=== PATIENT | female | born 1940 | race Hispanic/Latino ===

== ENCOUNTER 2017-01-21 12:38 | Emergency (ER) | payer MEDICARE ==
[2017-01-21 13:00] LABS: BASOPHILS % (AUTO) 0.3 % (0.0-5.0); EOSINOPHILS % (AUTO) 0.6 % (0.0-8.0); HEMATOCRIT 39.8 % (36-48); LYMPHOCYTES % (AUTO) 27.1 % (21.0-51.0); MEAN CORPUSCULAR HEMOGLOBIN 40.5 pg (27.0-33.0); MEAN CORPUSCULAR VOLUME 115.6 fL (79-99); MONOCYTES % (AUTO) 5.5 % (3.0-13.0); NEUTROPHILS % (AUTO) 66.5 % (40.0-77.0); PLATELET COUNT (AUTO) 219 K/uL (130-400); RED BLOOD CELL COUNT(AUTO) 3.45 MIL/uL (4.00-5.50); RED CELL DISTRIBUTION WIDTH 14.7 % (11.0-15.5); WHITE BLOOD COUNT (AUTO) 12.3 K/uL (4.8-10.8)
[2017-01-21 13:13] LABS: INR 0.93 (0.85-1.15); PARTIAL THROMBOPLASTIN TIME 24.9 SEC (26.3-35.5); PROTHROMBIN TIME 9.8 SEC (9.6-11.6)
[2017-01-21 13:26] LABS: AMPHET/METH SCREEN,URINE NEGATIVE (NEGATIVE); BARBITURATE SCREEN, URINE NEGATIVE (NEGATIVE); BENZODIAZEPINES SCREEN,URINE NEGATIVE (NEGATIVE); CANNABINOID SCREEN,URINE NEGATIVE (NEGATIVE); COCAINE SCREEN,URINE NEGATIVE (NEGATIVE); OPIATE SCREEN,URINE NEGATIVE (NEGATIVE); PHENCYCLIDINE SCREEN,URINE NEGATIVE (NEGATIVE)
[2017-01-21 13:32] LABS: APPEARANCE,URINE Cloudy (CLEAR); BILIRUBIN,URINE Negative (NEGATIVE); COLOR,URINE Dark Yellow (YELLOW); GLUCOSE, URINE (UA) >=1000 mg/dL (NEGATIVE); KETONES,URINE 15 mg/dL (NEGATIVE); LEUKOCYTE ESTERASE ,URINE Moderate (NEGATIVE); NITRATE,URINE Negative (NEGATIVE); OCCULT BLOOD,URINE Negative (NEGATIVE); PROTEIN,URINE Trace (NEGATIVE)
[2017-01-21 14:01] LABS: ALANINE AMINOTRANSFERASE 18 U/L (12-78); ALBUMIN 3.8 g/dL (3.5-5.0); ASPARTATE AMINOTRANSFERASE 15 U/L (10-37); BILIRUBIN,TOTAL 0.9 mg/dL (0.2-1.0); CARBON DIOXIDE 29 mmol/L (21-32); CHLORIDE 98 mmol/L (101-111); CREATINE KINASE MB < 0.5 ng/mL (0.5-3.6); CREATINE KINASE, TOTAL 37 U/L (21-232); CREATININE 1.1 mg/dL (0.5-1.5); GLOMERULAR FILTR. RATE CALC 51 mL/min (>60); GLUCOSE,RANDOM 329 mg/dL (70-105); MYOGLOBIN 39 ng/mL (10-92); POTASSIUM 5.1 mmol/L (3.5-5.1); SODIUM SERUM 136 mmol/L (136-145); TOTAL PROTEIN, SERUM 8.6 g/dL (6.0-8.3); UREA NITROGEN, BLOOD 27 mg/dL (7-18)
[2017-01-21 14:17] LABS: BACTERIA,URINE Many /HPF (None Seen); RBC,URINE 0-1 /HPF (0-1)
[2017-01-21] MEDS ORDERED: ASPIRIN 325 MG TABLET ONE (14:45)
[2017-01-21] MEDS ORDERED: SODIUM CHLORIDE 0.9% 1000ML 1,000 ML IV ONE (16:20)
[2017-01-21] MEDS ORDERED: INSULIN HUMULIN R 100 UNIT/ML 3ML ONE (16:21)
== END 2017-01-21 18:31 | disposition home or self-care (01) ==
LOC: EDH 12:38
DX: I63.9 Cerebral infarction, unspecified (principal); E11.9 Type 2 diabetes mellitus without complications; I10 Essential (primary) hypertension; E07.9 Disorder of thyroid, unspecified; Z88.0 Allergy status to penicillin
CPT/HCPCS: 36415; 70450; 71010; 80053; 80305; 81001; 82550; 82553; 82948 ×2; 83874; 84484; 85025; 85610; 85730; 93005; 96361; 96374; 99285; J1815; J7030

== ENCOUNTER 2018-09-30 19:59 | Inpatient (IN) | payer MEDICARE | END 2018-10-03 20:41 | disposition home or self-care (01) | LOC: EDH 19:59 → EDHIP 10-01 00:11 → 3CH 10-01 01:51 | DX: N17.9 Acute kidney failure, unspecified (principal); N39.0 Urinary tract infection, site not specified; I50.32 Chronic diastolic (congestive) heart failure; I95.1 Orthostatic hypotension; E86.0 Dehydration ==

== ENCOUNTER 2018-12-13 02:52 | Inpatient (IN) | payer MEDICARE ==
[~2018-12-13] VITALS: Ht 165.1 cm; Wt 63.1 kg
[~2018-12-13 02:52] MED LIST: ASPI-555 PO; ATOR40TA69 PO; CLOP75TA32 PO; ERGO500014 PO; INSU100V37 SQ; LEVO50TA11 PO; LISI-617 PO; METF-526 PO; VITA-328 PO
[2018-12-13 03:24] LABS: BASOPHILS % (AUTO) 0.6 % (0.0-5.0); EOSINOPHILS % (AUTO) 2.2 % (0.0-8.0); HEMATOCRIT 40.7 % (36-48); LYMPHOCYTES % (AUTO) 38.8 % (21.0-51.0); MEAN CORPUSCULAR HEMOGLOBIN 32.2 pg (27.0-33.0); MEAN CORPUSCULAR HGB CONC 34.4 g/dL (32.0-36.0); MEAN CORPUSCULAR VOLUME 93.5 fL (79-99); MONOCYTES % (AUTO) 6.1 % (3.0-13.0); NEUTROPHILS % (AUTO) 52.3 % (40.0-77.0); PLATELET COUNT (AUTO) 221 K/uL (130-400); RED BLOOD CELL COUNT(AUTO) 4.36 MIL/uL (4.00-5.50); RED CELL DISTRIBUTION WIDTH 13.1 % (11.0-15.5); WHITE BLOOD COUNT (AUTO) 9.8 K/uL (4.8-10.8)
[2018-12-13] MEDS ORDERED: KETAMINE 50MG/ML SYRINGE 50 MG/ML DISP.SYRIN IV ONE (03:27)
[2018-12-13 03:28] LABS: CREATININE 1.1 mg/dL (0.5-1.5); POTASSIUM 4.1 mmol/L (3.5-5.1)
[2018-12-13 03:32] LABS: ALBUMIN 3.5 g/dL (3.5-5.0); BILIRUBIN,TOTAL 0.4 mg/dL (0.2-1.0); TOTAL PROTEIN, SERUM 7.6 g/dL (6.0-8.3)
[2018-12-13] MEDS ORDERED: MORPHINE SULFATE 2 MG/ML 1ML SYG ONE (04:21)
[2018-12-13 04:49] LABS: APPEARANCE,URINE Clear (CLEAR); BILIRUBIN,URINE Negative (NEGATIVE); COLOR,URINE Yellow (YELLOW); GLUCOSE, URINE (UA) Negative (NEGATIVE); KETONES,URINE Negative (NEGATIVE); LEUKOCYTE ESTERASE ,URINE Negative (NEGATIVE); NITRATE,URINE Negative (NEGATIVE); OCCULT BLOOD,URINE Negative (NEGATIVE); PH,URINE 5.5 (5.0-8.0); PROTEIN,URINE Negative (NEGATIVE)
[2018-12-13] MEDS: SODIUM CHLORIDE 0.9% 1000ML 1,000 ML IV SCH ×2 (06:15→19:35)
[2018-12-13] MEDS ORDERED: HYDRALAZINE HCL 20 MG/ML VIAL IV PRN (06:15)
[2018-12-13] MEDS ORDERED: SODIUM CHLORIDE 0.9% 1000ML 1,000 ML IV ONE (06:51)
[2018-12-13] MEDS ORDERED: MORPHINE SULFATE 2 MG/ML 1ML SYG IVP PRN (07:45)
[2018-12-13 08:19] VITALS: BP 110/59
[2018-12-13] MEDS ORDERED: B CO1CAP5 PO (08:25)
[2018-12-13] MEDS ORDERED: [UNRECOGNIZED DRUG - CODE] PO (08:26)
[2018-12-13] MEDS: METFORMIN HCL 500 MG TAB.SR.24H PO SCH (09:00)
[2018-12-13] MEDS: MORPHINE SULFATE 2 MG/ML 1ML SYG IVP PRN ×3 (09:36→23:52)
[2018-12-13] MEDS: FAMOTIDINE/PF 20 MG/2 ML VIAL IV SCH ×2 (09:36→19:35)
[2018-12-13 11:14] VITALS: BP_SYST 112; BP_SYST 132; BP_DIAS 53; BP_DIAS 70
[2018-12-13] MEDS: KETOROLAC TROMETHAMINE 30MG/ML IM PRN (12:16)
[2018-12-13] MEDS: LISINOPRIL 5 MG TABLET PO SCH (13:39)
[2018-12-13] MEDS: ASPIRIN 81 MG EC TAB PO SCH (13:39)
[2018-12-13] MEDS: HEPARIN SODIUM 5000UNIT/ML 1ML VIAL SQ SCH ×2 (13:41→19:28)
[2018-12-13 16:00] VITALS: BP 110/51
[2018-12-13] MEDS: INSULIN HUMULIN R 100 UNIT/ML 3ML SQ SCH ×2 (16:27→21:54)
--- NOTE | 2018-12-13 16:48 | NUR ---
cm note met with patient pt completely blind. met with granddaughter and sister, per pt resides at home with daughter Bella. pt has no dme. ambulates as long as someone is with her. pt/family open to snf or rehab. will discuss with daughter bella as well of which one they prefer. Addendum: 12/13/18 at 1651 by GISELLA BORREGO CM Amended: Links added.
[2018-12-13 19:14] VITALS: BP 107/49
[2018-12-13] MEDS: ATORVASTATIN CALCIUM 40 MG TABLET PO SCH (19:35)
[2018-12-13 23:06] VITALS: BP 100/51
[2018-12-14 03:06] VITALS: BP 95/43
[2018-12-14 05:54] LABS: BASOPHILS % (AUTO) 0.3 % (0.0-5.0); EOSINOPHILS % (AUTO) 1.2 % (0.0-8.0); HEMATOCRIT 28.6 % (36-48); MEAN CORPUSCULAR HEMOGLOBIN 33.1 pg (27.0-33.0); MEAN CORPUSCULAR HGB CONC 35.1 g/dL (32.0-36.0); MEAN CORPUSCULAR VOLUME 94.2 fL (79-99); MONOCYTES % (AUTO) 8.6 % (3.0-13.0); NEUTROPHILS % (AUTO) 61.9 % (40.0-77.0); PLATELET COUNT (AUTO) 189 K/uL (130-400); RED BLOOD CELL COUNT(AUTO) 3.03 MIL/uL (4.00-5.50); RED CELL DISTRIBUTION WIDTH 12.9 % (11.0-15.5); WHITE BLOOD COUNT (AUTO) 10.2 K/uL (4.8-10.8)
[2018-12-14 06:09] LABS: CREATININE 1.1 mg/dL (0.5-1.5); POTASSIUM 3.8 mmol/L (3.5-5.1); TOTAL PROTEIN, SERUM 6.1 g/dL (6.0-8.3)
[2018-12-14 06:25] LABS: ALBUMIN 2.8 g/dL (3.5-5.0); BILIRUBIN,TOTAL 0.5 mg/dL (0.2-1.0)
[2018-12-14] MEDS: INSULIN HUMULIN R 100 UNIT/ML 3ML SQ SCH ×4 (06:35→21:00)
[2018-12-14] MEDS: HEPARIN SODIUM 5000UNIT/ML 1ML VIAL SQ SCH ×2 (07:45→20:37)
[2018-12-14 07:50] VITALS: BP 118/48
[2018-12-14] MEDS: MORPHINE SULFATE 2 MG/ML 1ML SYG IVP PRN ×2 (08:03→21:49)
[2018-12-14] MEDS: METFORMIN HCL 500 MG TAB.SR.24H PO SCH (08:04)
[2018-12-14] MEDS: LEVOTHYROXINE 50 MCG TABLET PO SCH (08:04)
[2018-12-14] MEDS: FAMOTIDINE/PF 20 MG/2 ML VIAL IV SCH ×2 (08:04→20:37)
[2018-12-14] MEDS: ASPIRIN 81 MG EC TAB PO SCH (09:00)
[2018-12-14] MEDS: LISINOPRIL 5 MG TABLET PO SCH (09:00)
--- NOTE | 2018-12-14 10:30 | NUR ---
PLAN POST SRUGERY? SPOKE TO FAMILY/SISTER AT BEDSIDE. /DAUGHTER ON PHONE ALL AGREED ON VBIP VERBAL CONSENT OBTAINED FROM PATIENT- WILL FOLLOW UP POST DISCHARGE
--- NOTE | 2018-12-14 10:31 | NUR ---
PLAN POST SURGERY CAROL ANN Paul DTR ON PHONE/SISTER AT B/SIDE. ALL AGREED TO VBIP RU. VERBAL CONSENT FROM PATIENT. WILL FOLLOW UP POST SURGERY
[2018-12-14 11:50] VITALS: BP 110/65
[2018-12-14] MEDS ORDERED: LORAZEPAM 2 MG/ML 1 ML VIAL ONE (13:23)
--- NOTE | 2018-12-14 13:23 | NUR ---
AGITATED AAOX1, PATIENT IS RESTLESS, PULLED OUT IV AND REMOVED TELEPAK. PATIENT REDIRECTED TO NOT PULL ON LINES, PATIENT CONFUSED AND UNABLE TO FOLLOW DIRECTIONS. ADMINISTRATOR SOCIAL WELFARE PAGED, NEW ORDER FOR ATIVAN 0.25MG IV PRN. WILL GIVE ATIVAN PRN. BED LOW AND LOCKED. FAMILY IN ROOM.
[2018-12-14] MEDS: SODIUM CHLORIDE 0.9% 1000ML 1,000 ML IV SCH ×2 (17:02→21:48)
[2018-12-14 17:11] VITALS: BP 130/63
[2018-12-14 20:11] VITALS: BP 142/63
[2018-12-14] MEDS: ATORVASTATIN CALCIUM 40 MG TABLET PO SCH (20:38)
[2018-12-14] MEDS: LORAZEPAM 2 MG/ML 1 ML VIAL IVP PRN (20:46)
[2018-12-15] VITALS (22 sets, daily range): BP systolic 82–150; BP diastolic 37–73
[2018-12-15] MEDS: LORAZEPAM 2 MG/ML 1 ML VIAL IVP PRN (01:57)
[2018-12-15 05:15] LABS: HEMATOCRIT 28.1 % (36-48); MEAN CORPUSCULAR VOLUME 94.3 fL (79-99); PLATELET COUNT (AUTO) 189 K/uL (130-400); RED BLOOD CELL COUNT(AUTO) 2.98 MIL/uL (4.00-5.50); RED CELL DISTRIBUTION WIDTH 12.4 % (11.0-15.5); WHITE BLOOD COUNT (AUTO) 9.9 K/uL (4.8-10.8)
[2018-12-15 05:22] LABS: CREATININE 0.8 mg/dL (0.5-1.5)
[2018-12-15] MEDS: INSULIN HUMULIN R 100 UNIT/ML 3ML SQ SCH ×4 (05:28→21:00)
[2018-12-15 05:48] LABS: POTASSIUM 4.1 mmol/L (3.5-5.1)
[2018-12-15] MEDS: METFORMIN HCL 500 MG TAB.SR.24H PO SCH (07:29)
[2018-12-15] MEDS: HEPARIN SODIUM 5000UNIT/ML 1ML VIAL SQ SCH ×2 (07:29→20:11)
[2018-12-15] MEDS: LEVOTHYROXINE 50 MCG TABLET PO SCH (07:29)
[2018-12-15] MEDS: ASPIRIN 81 MG EC TAB PO SCH (07:29)
[2018-12-15] MEDS: LISINOPRIL 5 MG TABLET PO SCH (07:29)
[2018-12-15] MEDS: FAMOTIDINE/PF 20 MG/2 ML VIAL IV SCH ×2 (07:43→20:04)
[2018-12-15 07:47] LABS: BAND NEUTROPHILS % (MANUAL) 2 % (0-2); LYMPHOCYTES % (MANUAL) 11 % (22-44); MONOCYTES % (MANUAL) 4 % (2-9); REACTIVE LYMPHOCYTES 2 % (0-0); SEGMENTED NEUTROPHILS % 81 % (40-70)
[2018-12-15 07:48] LABS: MAN.DIFF COMMENT-IMPRESSION MANUAL DIFFERENTIAL; PLATELET MORPHOLOGY COMMENT ADEQUATE
[2018-12-15] MEDS: SODIUM CHLORIDE 0.9% 1000ML 1,000 ML IV SCH ×2 (11:35→20:02)
[2018-12-15] MEDS ORDERED: SUCCINYLCHOLINE 200MG/10ML SYR ONE (16:02)
[2018-12-15] MEDS ORDERED: PROPOFOL 10 MG/ML 20ML VIAL IV ONE (16:02)
[2018-12-15] MEDS ORDERED: ROCURONIUM 10MG/1ML SYR 10 MG/ML ML ONE (16:02)
[2018-12-15] MEDS ORDERED: FENTANYL CITRATE PF 50 MCG/1 ML 2ML VIAL ONE (16:02)
[2018-12-15] MEDS ORDERED: LIDOCAINE PF 2% 5ML ABBOJECT ONE (16:02)
[2018-12-15] MEDS ORDERED: ROPIVACAINE 0.5% 5MG/ML 30ML IJ ONE (16:06)
[2018-12-15] MEDS ORDERED: SUCCINYLCHOLINE CHLORIDE 20 MG/ML 10 ML VIAL ONE (16:10)
[2018-12-15] MEDS ORDERED: CLINDAMYCIN 600 MG/D5% WATER 50 ML IV ONE (16:15)
[2018-12-15] MEDS ORDERED: EPHEDRINE SULFATE 50 MG/ML AMPULE ONE (16:40)
[2018-12-15] MEDS ORDERED: KETOROLAC TROMETHAMINE 30MG/ML ONE (17:45)
[2018-12-15] MEDS ORDERED: GLYCOPYRROLATE 1 MG/5 ML SYRINGE ONE (17:46)
[2018-12-15] MEDS ORDERED: NEOSTIGMINE 5MG/5ML SYR IV ONE (17:46)
[2018-12-15] MEDS ORDERED: HYDROCODONE/ACETAMINOPHEN 5/325 MG TAB PO PRN (18:00)
[2018-12-15] MEDS ORDERED: POTASSIUM CHLORIDE 20MEQ/100ML 100 ML IV PRN (18:00)
[2018-12-15] MEDS ORDERED: DIPHENHYDRAMINE HCL 25 MG CAPSULE PO PRN (18:00)
[2018-12-15] MEDS ORDERED: FERROUS FUMARATE 324 MG TABLET PO PRN (18:00)
[2018-12-15] MEDS ORDERED: DiphenhydrAMINE HCL 50 MG/ML VIAL IVP PRN (18:00)
[2018-12-15] MEDS: ATORVASTATIN CALCIUM 40 MG TABLET PO SCH (20:04)
[2018-12-15] MEDS: CLINDAMYCIN 900 MG/D5% WATER 50 ML IV SCH (22:27)
[2018-12-16 00:09] VITALS: BP 120/58
[2018-12-16] MEDS: SODIUM CHLORIDE 0.9% 1000ML 1,000 ML IV SCH ×4 (00:55→14:15)
[2018-12-16] MEDS: LORAZEPAM 2 MG/ML 1 ML VIAL IVP PRN (02:28)
[2018-12-16] MEDS ORDERED: LABETALOL 20 MG/4 ML DISP.SYRIN IV PRN (04:00)
--- NOTE | 2018-12-16 04:02 | NUR ---
ELEVATED HEART RATE PATIENT WITH HEART RATE AT 150 BPM PATIENT AWAKE BUT CONFUSED WHICH IS HER NORMAL STATE. FAMILY AT SIDE BLOOD PRESSURE 118/54. JOSHUA ADAMS INFORMED OF PATIENT STATUS. ORDERS FOR LABATOLOL 10 MG IV AND ECG WERE GIVEN AND CARRIED OUT.
[2018-12-16 04:09] VITALS: BP 164/79
[2018-12-16] MEDS: MORPHINE SULFATE 2 MG/ML 1ML SYG IVP PRN (04:44)
[2018-12-16] MEDS: CLINDAMYCIN 900 MG/D5% WATER 50 ML IV SCH (05:45)
[2018-12-16] MEDS: INSULIN HUMULIN R 100 UNIT/ML 3ML SQ SCH ×4 (05:52→21:00)
[2018-12-16 08:06] VITALS: BP 161/76
[2018-12-16] MEDS ORDERED: PHARMACY COMMUNICATION MISC SCH (09:30)
--- NOTE | 2018-12-16 10:45 | NUR ---
Sarah LUKE NP SPOKE TO Sarah LUKE NP FOR HOSPITALIST REGARDING REPORTED SVT EPISODE AROUND 0350 THIS MORNING. Sarah LUKE NP DID TELL ME THAT LONG PATIENTS HEART RHYTHM WAS ABLE TO CONVERT BACK TO SINUS RHYTHM THERE WAS NO INDICATIONS FOR FURTHER SCHEDULED MEDICATIONS. CONTINUE TO MONITOR FOR NOW.
[2018-12-16] MEDS: LEVOTHYROXINE 50 MCG TABLET PO SCH (11:25)
[2018-12-16] MEDS: METFORMIN HCL 500 MG TAB.SR.24H PO SCH (11:26)
[2018-12-16 11:28] VITALS: BP 110/73
[2018-12-16] MEDS: ASPIRIN 81 MG EC TAB PO SCH (11:29)
[2018-12-16] MEDS: CLOPIDOGREL BISULFATE 75 MG TAB PO SCH (11:29)
[2018-12-16] MEDS: POLYETHYLENE GLYCOL 3350 17 GM POWD.PACK PO SCH (11:30)
[2018-12-16] MEDS: LISINOPRIL 5 MG TABLET PO SCH (11:30)
[2018-12-16] MEDS: FAMOTIDINE/PF 20 MG/2 ML VIAL IV SCH ×2 (11:31→20:22)
[2018-12-16] MEDS: PSYLLIUM SEED 1 EACH PACKET PO SCH (12:00)
--- NOTE | 2018-12-16 12:15 | NUR ---
CHRISTINA LEYVA FOR CARDIOLOGY CHRISTINA LEYVA FOR CARDIOLOGY ROUNDING ON FLOOR AT THIS TIME. I TOLD CHRISTINA LEYVA THAT HOSPITALIST HAD CONSULTED WITH DR. BIMAL MCGRATH REGARDING CARDIAC CLEARANCE PRIOR TO SURGERY, AND I ASKED CHRISTINA LEYVA IF CARDIOLOGY STILL ROUNDS ON PATIENTS AFTER SURGERY. CHRISTINA LEYVA REPLIED THAT DR. BIMAL MCGRATH HAS SIGNED OFF OF CASE SO THEY ARE NO LONGER SEEING PATIENT. I TOLD CHRISTINA LEYVA THAT I WAS CONCERNED OF PATIENTS REPORTED EPISODES OF SVT CONVERSION. CHRISTINA LEYVA REPLIED THAT LONG PATIENTS RHYTHM WAS ABLE TO CONVERT PACK TO NORMAL SINUS RHYTHM THE PATIENT SHOULD BE OKAY AND IF ANY ISSUES ARISE THEN PRIMARY COULD CONSULT WITH CARDIOLOGY AGAIN.
--- NOTE | 2018-12-16 15:00 | NUR ---
DISPOSITION TO SNF OR TO IPRU? SPOKE TO DAUGHTER IN [facility]- DAUGHTER STATES WAS ADVISED THAT PT IS TOO SICK /FRAIL TO GO TO IP REHAB ADVISED DAUGHTER GIVE HER A DAY OR TWO, WE WILL SEE WHAT SHE CAN DO. SPOKE TO PTX RE PLAN- CALL TO DENIA AT [facility]- PRESENTED CASE, ESPECIALLY WITH PT BEING BLIND AND FORMERLY BEING ABLE TO NAVIGATE HER ROOM/HOME. ON PAPER, STATES DENIA, REP FROM [facility], SHE APPEARS TO BE A GOOD CANDIDATE WILL WAIT TO SEE HOW SHE IMPROVES KAL CALLED BACK STATES SHE WENT TO [facility] AND LIKES IT, WANTS HER MOM TO GO THERE IF DOES NOT GET INTO [facility]. WILL SEND REFERRAL TO [facility] OR [facility] IN AM DEPENDING ON PT SESSION TOMORROW Addendum: 12/16/18 at 1859 by DESI VAZQUEZ RN CM Amended: Links added.
[2018-12-16 16:02] VITALS: BP 124/65
[2018-12-16] MEDS: KETOROLAC TROMETHAMINE 30MG/ML IM PRN (18:42)
[2018-12-16] MEDS ORDERED: ACETAMINOPHEN 325 MG TAB PO PRN (19:00)
[2018-12-16 20:06] VITALS: BP 112/64
[2018-12-16] MEDS: ATORVASTATIN CALCIUM 40 MG TABLET PO SCH (20:19)
[2018-12-17 00:06] VITALS: BP 160/61
[2018-12-17 04:06] VITALS: BP 164/69
[2018-12-17 06:10] LABS: BASOPHILS % (AUTO) 0.5 % (0.0-5.0); EOSINOPHILS % (AUTO) 1.6 % (0.0-8.0); HEMATOCRIT 22.2 % (36-48); LYMPHOCYTES % (AUTO) 20.2 % (21.0-51.0); MEAN CORPUSCULAR HEMOGLOBIN 32.7 pg (27.0-33.0); MEAN CORPUSCULAR HGB CONC 35.2 g/dL (32.0-36.0); MEAN CORPUSCULAR VOLUME 93.1 fL (79-99); MONOCYTES % (AUTO) 7.3 % (3.0-13.0); NEUTROPHILS % (AUTO) 70.4 % (40.0-77.0); PLATELET COUNT (AUTO) 174 K/uL (130-400); RED BLOOD CELL COUNT(AUTO) 2.38 MIL/uL (4.00-5.50); RED CELL DISTRIBUTION WIDTH 12.8 % (11.0-15.5); WHITE BLOOD COUNT (AUTO) 8.9 K/uL (4.8-10.8)
[2018-12-17 06:20] LABS: CREATININE 0.8 mg/dL (0.5-1.5); POTASSIUM 3.7 mmol/L (3.5-5.1)
[2018-12-17] MEDS: INSULIN HUMULIN R 100 UNIT/ML 3ML SQ SCH ×3 (06:38→16:30)
[2018-12-17 08:08] VITALS: BP 150/71
[2018-12-17] MEDS: POLYETHYLENE GLYCOL 3350 17 GM POWD.PACK PO SCH (09:00)
[2018-12-17] MEDS: LEVOTHYROXINE 50 MCG TABLET PO SCH (10:19)
[2018-12-17] MEDS: ASPIRIN 81 MG EC TAB PO SCH (10:19)
[2018-12-17] MEDS: CLOPIDOGREL BISULFATE 75 MG TAB PO SCH (10:19)
[2018-12-17] MEDS: LISINOPRIL 5 MG TABLET PO SCH (10:19)
[2018-12-17] MEDS: METFORMIN HCL 500 MG TAB.SR.24H PO SCH (10:20)
[2018-12-17] MEDS: FAMOTIDINE/PF 20 MG/2 ML VIAL IV SCH (10:28)
--- NOTE | 2018-12-17 10:33 | NUR ---
REFERRAL TO [facility] PER FAMILY REQUEST SPOKE TO PRIMARY RN- ADVISED TO EXPECT DISCHARGE TODAY, PT WILL BE ACCEPTED, AND THAERE IS A N ORDER FOR DCWHEN ACCEPTED. [facility] NURSE STATES STILL PENDING SRUGICAL CLEARANCE, [facility] PT NOTES AND PASSR
[2018-12-17 11:00] VITALS: BP 143/62
[2018-12-17] MEDS: PSYLLIUM SEED 1 EACH PACKET PO SCH (12:00)
--- NOTE | 2018-12-17 12:30 | NUR ---
MATHEWS CATHETER DISCONTINUED REMOVED 16FR MATHEWS CATHETER, NO RESISTANCE NOTED UPON REMOVAL. MATHEWS CATHETER TIP INTACT. PATIENT TOLERATED MATHEWS CATHETER REMOVAL WELL. PATIENT DUE TO VOID, WILL CONTINUE TO MONITOR.
--- NOTE | 2018-12-17 13:20 | NUR ---
DR. APARICIO MD HERE TO SEE PATIENT. MD PLACED ORDERS TO DISCHARGE PATIENT FROM [facility]. DR. APARICIO GAVE WRITTEN RX FOR ELIQUIS, TYLENOL, TRAMADOL, AND FERROUS FUMARATE. I TOLD DR. APARICIO THAT PATIENT TAKES HOME MEDICATIONS PLAVIX 75 MG PO DAILY AND ASPIRIN [address] APARICIO REPLIED TO STILL GIVE RX FOR ELIQUIS.
--- NOTE | 2018-12-17 14:00 | NUR ---
ELEVATED TEMPERATURE INFORMED Sarah LUKE NP HOSPITALIST OF PATIENTS LOW GRADE TEMP READING 100.1F AND RECHECK 99.9 F AND NO ORDERS FOR ANTIPYRETIC PRN. PLACED ORDERED FOR TYLENOL PRN FOR TEMPERATURES GREATER THAN 101.5F.
[2018-12-17] MEDS ORDERED: ACETAMINOPHEN 325 MG TAB PO PRN (14:15)
--- NOTE | 2018-12-17 14:25 | NUR ---
FAMILY REPORT I ASKED PATIENTS DAUGHTER, RUBIA DIAZ WHO WAS PATIENTS TRIPLE VALVE TESTER AND PATIENTS DAUGHTER TOLD ME THAT PATIENT DOES NOT HAVE A TRIPLE VALVE TESTER AND HOME MEDICATIONS (PLAVIX AND ASPIRIN) WAS MANAGED BY PCP DR. WOLF. I INFORMED Sarah LUKE NP FOR HOSPITALIST OF THIS AND SHE TOLD ME SHE WOULD LET ME KNOW REGARDING MEDICATION RECONCILIATION.
--- NOTE | 2018-12-17 14:45 | NUR ---
MEDICATION RECONCILIATION Sarah LUKE NP FOR HOSPITALIST TOLD ME PATIENT TO RESUME ALL HOME MEDICATIONS, INCLUDING PLAVIX AND ASPIRIN. Sarah LUKE NP FOR DR. PERKINS TOLD ME THAT DR. PERKINS SAID TAKING PLAVIX, ASPIRIN, AND ELIQUIS WILL BE OKAY SINCE ELIQUIS WILL BE FOR 4 WEEKS ONLY.
--- NOTE | 2018-12-17 14:55 | NUR ---
PATIENT DUE TO VOID INFORMED Sarah LUKE NP THAT EVEN THOUGH PATIENT DISCHARGED TO FACILITY, PATIENT IS STILL DUE TO VOID AFTER MATHEWS CATHETER REMOVAL AT 1230. INFORMED FAMILY TO ENCOURAGE WATER INTAKE, WILL CONTINUE TO MONITOR.
--- NOTE | 2018-12-17 15:30 | NUR ---
BLADDER SCAN/INSERT MATHEWS CATHETER ORDER CALLED Sarah LUKE NP FOR HOSPITALIST TO QUESTION ORDERS PLACED AT 1507 TO PERFORM BLADDER SCAN AND INSERT MATHEWS CATH IF BLADDER SCAN SHOWS >200ML. I REMINDED Sarah LUKE NP THAT I REMOVED MATHEWS CATHETER AT 1230 AND ITS ONLY BEEN 3 HOURS. Sarah LUKE NP REPLIED TO ME THAT DR. PERKINS OKAYED FOR PERFORM THIS ORDER NOW. I EXPLAINED TO Sarah LUKE NP THAT I FELT IT WAS UNSAFE NURSING PRACTICE TO PERFORM THIS TASK THIS SOON AFTER MATHEWS CATHETER REMOVAL. I FURTHER EXPLAINED THAT STANDARD NURSING PRACTICE, AT LEAST TO MY TRAINING I RECEIVED IN THIS FACILITY, IS TO PERFORM BLADDER SCAN 6-8 HOURS AFTER MATHEWS CATHETER REMOVAL. Sarah LUKE NP REPLIED THAT I COULD PERFORM THE BLADDER SCAN 6 HOURS AFTER MATHEWS REMOVAL.
[2018-12-17 16:00] VITALS: BP 129/61
[2018-12-17] MEDS ORDERED: BISACODYL 5 MG TABLET.DR PO PRN (18:00)
--- NOTE | 2018-12-17 18:25 | NUR ---
PATIENT VOIDED PATIENT USED CALL LIGHT AND STATED SHE FELT URGE TO URINATE. VOCATIONAL COORDINATOR PLACED PATIENT ON BEDPAN, PATIENT VOIDED 350CC CLEAR, YELLOW URINE. WILL PROCEED WITH DISCHARGE/TRANSFER TO [facility].
--- NOTE | 2018-12-17 18:40 | NUR ---
REPORT GIVEN TO [facility] NURSE REPORT GIVEN TO NURSE CLIFTON OF [facility] [phone]. FAXED MEDICATION RECONCILIATION AND DR. APARICIO'S WRITTEN RX TO [facility] [phone]. ORIGINAL RX AND COPY OF MEDICATION RECONCILIATION AND COPY OF DR. APARICIO'S DISCHARGE ORDERS PLACED IN PATIENT CHART COPY FOLDER.
--- NOTE | 2018-12-17 18:55 | NUR ---
FAMILY NOTIFIED FAMILY NOT PRESENT AT THIS CALLED. SPOKE TO PATIENTS DAUGHTER, RUBIA ALLEN, VIA TELEPHONE [phone] TO INFORM HER PATIENT WAS TO BE TRANSFERRED TO [facility] TODAY AND RUBIA ALLEN TOLD ME HER SISTER AND PATIENTS GRANDDAUGHTER WERE ON THE WAY TO HOSPITAL NOW FOR DISCHARGE PAPERWORK AND ACCOMPANY PATIENT TO [facility].
--- NOTE | 2018-12-17 19:10 | NUR ---
[facility] [phone] CALLED TO REPORT PATIENT READY TO BE PICKED UP AND TRANSFERRED TO [facility].
--- NOTE | 2018-12-17 19:30 | NUR ---
FAMILY/DISCHARGE TEACHING PATIENTS DAUGHTER, MARIA TERESA KOO, AND PATIENTS GRAND-DAUGHTER, JOSHUA RAMIREZ ARRIVED TO ROOM 432 TO RECEIVE DISCHARGE INSTRUCTIONS. JOSHUA RAMIREZ TOLD ME THAT SHE WILL STAY THE NIGHT AT [facility]ILITY WITH PATIENT TONIGHT. DISCHARGE TEACHING PROVIDED TO PATIENT AND FAMILY AT BEDSIDE OF DISCHARGE INSTRUCTIONS. INFORMED PATIENT TO CONTINUE ALL HOME MEDICATIONS, TEACHING PROVIDED REGARDING NEW RX BY DR. APARICIO (ELIQUIS, TRAMADOL, TYLENOL, FERROUS FUMARATE), DR. APARICIO DISCHARGE ORDERS (WBAT WITH WALKER, DRESSING TO BE KEPT DRY AND INTACT, MARCI/DERRICK WRAP TO OPERATED EXTREMITY, KNEE IMMOBILIZER FOR COMFORT, SCHEDULED F/U W/ DR. APARICIO, SCHEDULE F/U WITH DR. WOLF AFTER DISCHARGE FROM [facility]), AND WARNING S/S THAT INDICATE RETURN TO ER (S/S INFECTION, SEVERE PAIN, SYMPTOMS OF WORSENING). PRESENT FAMILY MEMBERS VERBALIZED UNDERSTANDING OF DISCHARGE TEACHING. MARIA TERESA KOO SIGNED DISCHARGE INSTRUCTION FORM AND GIVEN DISCHARGE PAPERWORK FOLDER. REMOVED 22G IV FROM LEFT FA, CATHETER TIP INTACT. AWAITING EMS TO PROGRAMMING INSTRUCTOR PATIENT.
[2018-12-18] MEDS ORDERED: BISACODYL 10 MG SUPP.RECT RC PRN (18:00)
== END 2018-12-17 20:44 | DRG 482 ==
LOC: EDH 02:52 → EDHIP 05:37 → 4AH 07:58
PROVIDERS: ADMIT Family Medicine; ATTEND Family Medicine
PROC: 0QS804Z Reposition Right Femoral Shaft with Internal Fixation Device, Open Approach (ICD-10-PCS; principal; 2018-12-16)
DX: S72.301A Unspecified fracture of shaft of right femur, initial encounter for closed fracture (principal); I16.0 Hypertensive urgency; E11.9 Type 2 diabetes mellitus without complications; E03.9 Hypothyroidism, unspecified; E55.9 Vitamin D deficiency, unspecified; E78.5 Hyperlipidemia, unspecified; F41.9 Anxiety disorder, unspecified; H54.8 Legal blindness, as defined in USA; I10 Essential (primary) hypertension; I25.10 Atherosclerotic heart disease of native coronary artery without angina pectoris; W01.0XXA Fall on same level from slipping, tripping and stumbling without subsequent striking against object, initial encounter; N28.9 Disorder of kidney and ureter, unspecified; Y92.009 Unspecified place in unspecified non-institutional (private) residence as the place of occurrence of the external cause; Z83.3 Family history of diabetes mellitus; Z88.0 Allergy status to penicillin; Z91.018 Allergy to other foods; Z90.49 Acquired absence of other specified parts of digestive tract; Y93.89 Activity, other specified; Y99.8 Other external cause status
CPT/HCPCS: 36415; 70450; 73551; 73552; 73560; 76700; 80048; 80053; 81003; 82948; 84484; 85025; 93005; 97039; G0378; J0330; J1644; J1815; J1885; J2001; J2060; J2704; J2710; J2795; J3010; J3490; J7030